=== PATIENT | female | born 1950 | race Two or more races ===

== ENCOUNTER → 2016-11-10 | Outpatient (CLI) | payer MEDICARE | END | disposition home or self-care (01) | LOC: LAB 09:10 | PROVIDERS: ATTEND Internal Medicine Cardiovascular Disease | DX: E03.9 Hypothyroidism, unspecified (principal) | CPT/HCPCS: 36415; 84436; 84443 ==

== ENCOUNTER → 2017-04-27 | Outpatient (CLI) | payer MEDICARE ==
[2017-04-27 12:13] LABS: Basophils # (auto) 0.1 uL; Basophils % (auto) 0.5 % (0.0-2.0); CONDITION Y; Eosinophils # (auto) 0.2 uL; Eosinophils % (auto) 1.9 % (0.0-7.0); Hematocrit 46.5 % (36.0-46.0); Hemoglobin 15.4 g/dL (12.2-16.2); Lymphocytes # (auto) 2.1 uL; Lymphocytes % (auto) 19.2 % (10.0-50.0); Mean Corpuscular Hemoglobin 29.4 pg (28.0-32.0); Mean Corpuscular Hgb Conc. 33.2 g/dL (32.0-36.0); Mean Corpuscular Volume 88.5 fL (80.0-100.0); Mean Platelet Volume 9.8 fL (7.4-10.4); Monocytes % (auto) 9.2 % (0.0-12.0); Neutrophils # (auto) 7.6 uL; Neutrophils % (auto) 69.2 % (37.0-80.0); Platelet Count (auto) 300 10^3/uL (140-450); Red Cell Distribution Width 14.9 % (11.6-16.0)
[2017-04-27 12:14] LABS: Urine Bilirubin Negative (Negative); Urine Blood Negative /uL (Negative); Urine Color Yellow (Yellow); Urine Glucose Normal (Normal); Urine Ketone Negative (Negative); Urine Nitrite Negative (Negative); Urine Urobilinogen Normal (Negative); Urine pH 5.5 (5.0-8.0)
[2017-04-27 12:47] LABS: Albumin 3.1 g/dL (3.4-5.0); Alkaline Phosphatase 109 U/L (45-117); Anion Gap 7 (5-15); Aspartate Aminotransferase 23 U/L (15-37); BUN/Creatinine Ratio 23.6; Bilirubin, Direct < 0.1 mg/dL (0-0.2); Bilirubin, Total 0.4 mg/dL (0.2-1.0); Blood Urea Nitrogen 17 mg/dL (7-18); Calcium 9.5 mg/dL (8.5-10.1); Carbon Dioxide 25 mmol/L (21-32); Chloride 109 mmol/L (98-107); Cholesterol 166 mg/dL (< 200); GFR African American 104 mL/min; GFR Non-African American 86 mL/min; Glucose 87 mg/dL (74-106); HDL Cholesterol 59 mg/dL (40-59); LDL Cholesterol 95 mg/dL (< 100); Potassium 4.1 mmol/L (3.5-5.1); Sodium 141 mmol/L (136-145); Total Protein 6.6 g/dL (6.4-8.2); Triglycerides 69 mg/dL (< 150)
== END | disposition home or self-care (01) ==
LOC: LAB 08:26
PROVIDERS: ATTEND Internal Medicine Cardiovascular Disease
DX: I10 Essential (primary) hypertension (principal); E78.00 Pure hypercholesterolemia, unspecified; K74.1 Hepatic sclerosis; E11.9 Type 2 diabetes mellitus without complications; E03.9 Hypothyroidism, unspecified; D64.9 Anemia, unspecified; E55.9 Vitamin D deficiency, unspecified; N39.0 Urinary tract infection, site not specified
CPT/HCPCS: 36415; 80048; 80061; 80076; 81003; 82306; 83036; 84443; 85025

== ENCOUNTER → 2018-05-26 | Outpatient (CLI) | payer MEDICARE ==
[2018-05-26 12:27] LABS: Urine Blood Negative /uL (Negative); Urine Specific Gravity 1.016 (1.001-1.035)
[2018-05-26 12:28] LABS: Basophils # (auto) 0.1 uL; Basophils % (auto) 0.9 % (0.0-2.0); Eosinophils # (auto) 0.1 uL; Eosinophils % (auto) 1.6 % (0.0-7.0); Hematocrit 40.9 % (36.0-46.0); Hemoglobin 13.8 g/dL (12.2-16.2); Lymphocytes # (auto) 1.7 uL; Lymphocytes % (auto) 18.7 % (10.0-50.0); Mean Corpuscular Hemoglobin 29.6 pg (28.0-32.0); Mean Corpuscular Hgb Conc. 33.7 g/dL (32.0-36.0); Mean Corpuscular Volume 87.8 fL (80.0-100.0); Monocytes # (auto) 0.8 uL; Monocytes % (auto) 9.5 % (0.0-12.0); Neutrophils # (auto) 6.2 uL; Neutrophils % (auto) 69.3 % (37.0-80.0); Nucleated Red Blood Cells % 0.1 %; Platelet Count (auto) 284 10^3/uL (140-450); Red Blood Cells 4.66 10^6/uL (4.0-5.20); Red Cell Distribution Width 13.4 % (11.8-14.3); White Blood Cell 8.9 10^3/uL (4.4-10.8)
[2018-05-26 12:50] LABS: Albumin 2.9 g/dL (3.4-5.0); Bilirubin, Total 0.3 mg/dL (0.2-1.0); Potassium 3.8 mmol/L (3.5-5.1)
[2018-05-26 13:29] LABS: Free T4 (Free Thyroxine) 1.02 ng/dL (0.89-1.76)
== END | disposition home or self-care (01) ==
LOC: Rad HDHVI 09:06
PROVIDERS: ATTEND Internal Medicine
DX: Z00.01 Encounter for general adult medical examination with abnormal findings (principal); M77.32 Calcaneal spur, left foot; M77.31 Calcaneal spur, right foot; M19.071 Primary osteoarthritis, right ankle and foot; E03.9 Hypothyroidism, unspecified; E11.9 Type 2 diabetes mellitus without complications; E55.9 Vitamin D deficiency, unspecified; D51.9 Vitamin B12 deficiency anemia, unspecified; N39.0 Urinary tract infection, site not specified; M19.90 Unspecified osteoarthritis, unspecified site; F41.9 Anxiety disorder, unspecified; R00.2 Palpitations; M79.671 Pain in right foot; M79.89 Other specified soft tissue disorders
CPT/HCPCS: 36415; 73630; 80053; 80061; 81003; 82306; 82607; 83036; 84439; 84443; 85025; 87086

== ENCOUNTER → 2018-07-06 | Outpatient (CLI) | payer MEDICARE ==
[~2018-07-06] MED LIST: FLUT250M2 INH; IOHEXOL 350 MG/ML 100ML IJ ONE; LEVO112T4 PO; LORA-655 PO; METR500T14 PO; TIOT17SP IN
[2018-07-06 09:45] VITALS: BP 150/71
[2018-07-06 10:15] VITALS: BP 145/70
== END | disposition home or self-care (01) ==
LOC: Rad HDHVI 09:25
PROVIDERS: ATTEND Internal Medicine
DX: R10.9 Unspecified abdominal pain (principal); R63.4 Abnormal weight loss
CPT/HCPCS: 71260; 74177; 82565; G0463; Q9967

== ENCOUNTER 2018-07-12 17:53 | Inpatient (IN) | payer MEDICARE ==
[~2018-07-12] VITALS: Ht 165.1 cm; Wt 61.7 kg
[2018-07-12] MEDS ORDERED: FLUT250M2 INH (18:40)
[2018-07-12] MEDS ORDERED: LEVO112T4 PO (18:40)
[2018-07-12] MEDS ORDERED: TIOT17SP IN (18:41)
[2018-07-12] MEDS ORDERED: METR500T14 PO (18:41)
[2018-07-12] MEDS ORDERED: LORA-655 PO (18:41)
[2018-07-12 21:08] VITALS: BP 133/71
[2018-07-12 21:16] LABS: Basophils # (auto) 0.1 uL; Eosinophils # (auto) 0.2 uL; Monocytes # (auto) 1.2 uL; White Blood Cell 11.1 10^3/uL (4.4-10.8)
[2018-07-12] MEDS: LEVOFLOXACIN 500MG 100 ML IV SCH (21:17)
[2018-07-12 21:18] LABS: Basophils % (auto) 0.9 % (0.0-2.0); Eosinophils % (auto) 2.1 % (0.0-7.0); Hematocrit 35.4 % (36.0-46.0); Hemoglobin 11.7 g/dL (12.2-16.2); Lymphocytes # (auto) 1.5 uL; Lymphocytes % (auto) 13.2 % (10.0-50.0); Mean Corpuscular Hgb Conc. 32.9 g/dL (32.0-36.0); Mean Corpuscular Volume 81.8 fL (80.0-100.0); Neutrophils # (auto) 8.1 uL; Neutrophils % (auto) 72.8 % (37.0-80.0); Platelet Count (auto) 379 10^3/uL (140-450); Red Blood Cells 4.33 10^6/uL (4.0-5.20); Red Cell Distribution Width 14.1 % (11.8-14.3)
[2018-07-12 21:31] LABS: INR 1.05 (0.9-1.15); Partial Thromboplastin Time 28.9 sec (23.78-33.04); Prothrombin Time 11.2 sec (9.27-12.13)
[2018-07-12 21:39] LABS: Albumin 2.4 g/dL (3.4-5.0); BUN/Creatinine Ratio 18.2; Bilirubin, Total 0.2 mg/dL (0.2-1.0); Calcium 8.7 mg/dL (8.5-10.1); Potassium 3.6 mmol/L (3.5-5.1); Total Protein 6.5 g/dL (6.4-8.2)
[2018-07-12] MEDS: metroNIDAZOLE 500MG/100ML 100 ML IV SCH (23:36)
[2018-07-12] MEDS: IPRATROPIUM BROM 0.5 MG/2.5ML INH SOL NEB SCH (23:46)
[2018-07-12] MEDS: ALBUTEROL SULF 2.5 MG/0.5ML(0.5%) NEB SOLN NEB SCH (23:47)
[2018-07-13 00:32] VITALS: BP 133/71
[2018-07-13 04:46] VITALS: BP 144/74
[2018-07-13] MEDS: metroNIDAZOLE 500MG/100ML 100 ML IV SCH ×4 (05:45→23:58)
[2018-07-13] MEDS: LEVOTHYROXINE SODIUM 112 MCG TAB PO SCH ×3 (05:47→06:22)
[2018-07-13] MEDS: ALBUTEROL SULF 2.5 MG/0.5ML(0.5%) NEB SOLN NEB SCH ×4 (06:04→23:37)
[2018-07-13] MEDS: IPRATROPIUM BROM 0.5 MG/2.5ML INH SOL NEB SCH ×4 (06:04→23:37)
[2018-07-13] MEDS: BUDESONIDE (INHALATION) 0.5 MG/2 ML NEB NEB SCH ×2 (06:08→18:19)
[2018-07-13 08:00] VITALS: BP 132/77
[2018-07-13] MEDS: NICOTINE 21MG/24 HR TOPICAL PATCH TD SCH (10:00)
[2018-07-13] MEDS ORDERED: PATIENTS OWN MEDICATION IN SCH (10:00)
[2018-07-13 12:00] VITALS: BP 136/75
[2018-07-13 16:51] VITALS: BP 149/80
[2018-07-13] MEDS: LORazepam 0.5 MG TAB PO PRN (19:58)
[2018-07-13 21:33] VITALS: BP 156/75
[2018-07-13] MEDS ORDERED: CLINIMIX PER PHARMACY 0 ML IV SCH (22:00)
[2018-07-13] MEDS: LEVOFLOXACIN 500MG 100 ML IV SCH (22:18)
[2018-07-13] MEDS: InsuLIN REG 1unit/0.01ml Soln (100units/ml) SC SCH (23:58)
[2018-07-13] MEDS: ACCU-CHEK COMFORT CURVE STRIP VI SCH (23:58)
[2018-07-14] MEDS ORDERED: DEXTROSE (50%) 50ML SYRG IV SCH
[2018-07-14] MEDS: CLINIMIX PER PHARMACY IV NR ×2 (00:14→21:54)
[2018-07-14 04:41] VITALS: BP 150/78
[2018-07-14] MEDS: metroNIDAZOLE 500MG/100ML 100 ML IV SCH ×4 (05:49→23:31)
[2018-07-14] MEDS: LEVOTHYROXINE SODIUM 112 MCG TAB PO SCH (05:49)
[2018-07-14] MEDS: ACCU-CHEK COMFORT CURVE STRIP VI SCH ×4 (05:50→23:41)
[2018-07-14] MEDS: InsuLIN REG 1unit/0.01ml Soln (100units/ml) SC SCH ×4 (05:50→23:41)
[2018-07-14] MEDS: ALBUTEROL SULF 2.5 MG/0.5ML(0.5%) NEB SOLN NEB SCH ×3 (06:41→18:25)
[2018-07-14] MEDS: IPRATROPIUM BROM 0.5 MG/2.5ML INH SOL NEB SCH ×3 (06:41→18:25)
[2018-07-14] MEDS: BUDESONIDE (INHALATION) 0.5 MG/2 ML NEB NEB SCH ×2 (06:41→18:25)
[2018-07-14 07:13] LABS: Albumin 2.4 g/dL (3.4-5.0); BUN/Creatinine Ratio 15.9; Bilirubin, Total 0.2 mg/dL (0.2-1.0); Calcium 8.5 mg/dL (8.5-10.1); Magnesium 2.5 mg/dL (1.6-2.6); Phosphorus 2.1 mg/dL (2.5-4.90); Potassium 4.1 mmol/L (3.5-5.1); Pre Albumin 13.5 mg/dL (20.0-40.0); Total Protein 6.5 g/dL (6.4-8.2)
[2018-07-14 08:37] VITALS: BP 133/90
[2018-07-14] MEDS: NICOTINE 21MG/24 HR TOPICAL PATCH TD SCH (10:00)
[2018-07-14] MEDS ORDERED: EZ-GAS II GRANULES (RADIOLOGY USE) PO ONE (10:32)
[2018-07-14] MEDS ORDERED: GASTROGRAFIN 120 ML SOL ONE (10:32)
[2018-07-14] MEDS ORDERED: POTASSIUM PHOSP 22MEQ(15MMOLE) in NS 100 ML IV ONE (12:00)
[2018-07-14 13:00] VITALS: BP 147/72
[2018-07-14 16:11] VITALS: BP 140/80
[2018-07-14] MEDS ORDERED: CLINIMIX PER PHARMACY IV NR ×9 (20:00)
[2018-07-14] MEDS: LORazepam 0.5 MG TAB PO PRN (20:09)
[2018-07-14] MEDS: LEVOFLOXACIN 500MG 100 ML IV SCH (21:38)
[2018-07-14 22:00] VITALS: BP 141/82
[2018-07-15] MEDS: IPRATROPIUM BROM 0.5 MG/2.5ML INH SOL NEB SCH ×4 (00:30→19:18)
[2018-07-15] MEDS: ALBUTEROL SULF 2.5 MG/0.5ML(0.5%) NEB SOLN NEB SCH ×4 (00:30→19:18)
[2018-07-15 04:59] VITALS: BP 143/95
[2018-07-15] MEDS: LEVOTHYROXINE SODIUM 112 MCG TAB PO SCH (05:28)
[2018-07-15] MEDS: metroNIDAZOLE 500MG/100ML 100 ML IV SCH ×4 (05:29→23:59)
[2018-07-15] MEDS: ACCU-CHEK COMFORT CURVE STRIP VI SCH ×3 (05:35→18:00)
[2018-07-15] MEDS: InsuLIN REG 1unit/0.01ml Soln (100units/ml) SC SCH ×3 (05:35→18:00)
[2018-07-15] MEDS: BUDESONIDE (INHALATION) 0.5 MG/2 ML NEB NEB SCH ×2 (06:03→19:18)
[2018-07-15 06:19] LABS: Basophils # (auto) 0.1 uL; Basophils % (auto) 0.5 % (0.0-2.0); Eosinophils # (auto) 0.1 uL; Eosinophils % (auto) 0.5 % (0.0-7.0); Hematocrit 38.2 % (36.0-46.0); Hemoglobin 12.5 g/dL (12.2-16.2); Lymphocytes # (auto) 1.1 uL; Mean Corpuscular Hgb Conc. 32.9 g/dL (32.0-36.0); Mean Corpuscular Volume 82.2 fL (80.0-100.0); Monocytes # (auto) 1.2 uL; Neutrophils # (auto) 8.7 uL; Nucleated Red Blood Cells % 0.1 %; Platelet Count (auto) 381 10^3/uL (140-450); Red Blood Cells 4.64 10^6/uL (4.0-5.20); Red Cell Distribution Width 14.4 % (11.8-14.3); White Blood Cell 11.2 10^3/uL (4.4-10.8)
[2018-07-15 06:53] LABS: Albumin 2.6 g/dL (3.4-5.0); BUN/Creatinine Ratio 26.2; Bilirubin, Total 0.3 mg/dL (0.2-1.0); Calcium 8.9 mg/dL (8.5-10.1); Magnesium 2.3 mg/dL (1.6-2.6); Phosphorus 2.3 mg/dL (2.5-4.90); Potassium 3.8 mmol/L (3.5-5.1); Total Protein 6.9 g/dL (6.4-8.2)
[2018-07-15 09:00] VITALS: BP 147/72
[2018-07-15] MEDS ORDERED: POTASSIUM PHOSP 22MEQ(15MMOLE) in NS 100 ML IV ONE (09:00)
[2018-07-15] MEDS: NICOTINE 21MG/24 HR TOPICAL PATCH TD SCH (10:00)
[2018-07-15] MEDS ORDERED: HYDROmorphone HCL 2 MG TAB PO ONE (12:00)
[2018-07-15 12:45] VITALS: BP 182/89
[2018-07-15 17:00] VITALS: BP 161/84
[2018-07-15] MEDS ORDERED: [UNRECOGNIZED DRUG - OTHER] IV NR ×5 (20:00)
[2018-07-15] MEDS ORDERED: MULTIPLE VITAMIN IV NR ×5 (20:00)
[2018-07-15] MEDS ORDERED: POTASSIUM PHOSPHATE IV NR ×5 (20:00)
[2018-07-15] MEDS ORDERED: POTASSIUM ACETATE IV NR ×5 (20:00)
[2018-07-15] MEDS: LORazepam 0.5 MG TAB PO PRN (20:19)
[2018-07-15] MEDS: LEVOFLOXACIN 500MG 100 ML IV SCH (21:55)
[2018-07-15 22:00] VITALS: BP 153/92
[2018-07-16] MEDS: ACCU-CHEK COMFORT CURVE STRIP VI SCH ×4 (00:05→17:47)
[2018-07-16] MEDS: IPRATROPIUM BROM 0.5 MG/2.5ML INH SOL NEB SCH ×4 (00:56→18:21)
[2018-07-16] MEDS: ALBUTEROL SULF 2.5 MG/0.5ML(0.5%) NEB SOLN NEB SCH ×4 (00:56→18:21)
[2018-07-16 01:29] VITALS: BP 153/92
[2018-07-16 05:00] VITALS: BP 134/74
[2018-07-16] MEDS: InsuLIN REG 1unit/0.01ml Soln (100units/ml) SC SCH ×4 (06:00→17:47)
[2018-07-16] MEDS: LEVOTHYROXINE SODIUM 112 MCG TAB PO SCH (06:14)
[2018-07-16] MEDS: metroNIDAZOLE 500MG/100ML 100 ML IV SCH ×3 (06:14→17:46)
[2018-07-16 06:40] LABS: Albumin 2.5 g/dL (3.4-5.0); Bilirubin, Total 0.4 mg/dL (0.2-1.0); Calcium 8.9 mg/dL (8.5-10.1); Magnesium 2.4 mg/dL (1.6-2.6); Phosphorus 2.5 mg/dL (2.5-4.90); Potassium 3.7 mmol/L (3.5-5.1); Total Protein 6.6 g/dL (6.4-8.2)
[2018-07-16] MEDS: BUDESONIDE (INHALATION) 0.5 MG/2 ML NEB NEB SCH ×2 (07:05→18:21)
[2018-07-16] MEDS ORDERED: IOHEXOL 300 MG/ML 100ML BOTTLE IJ ONE (08:06)
[2018-07-16 08:09] VITALS: BP 155/76
[2018-07-16] MEDS: NICOTINE 21MG/24 HR TOPICAL PATCH TD SCH (09:57)
[2018-07-16 12:14] VITALS: BP 141/78
[2018-07-16 16:45] VITALS: BP 140/85
[2018-07-16] MEDS ORDERED: CLINIMIX PER PHARMACY IV NR ×5 (20:00)
[2018-07-16] MEDS: LORazepam 0.5 MG TAB PO PRN (21:38)
[2018-07-16] MEDS: LEVOFLOXACIN 500MG 100 ML IV SCH (21:39)
[2018-07-16 22:00] VITALS: BP 143/79
[2018-07-17] MEDS: metroNIDAZOLE 500MG/100ML 100 ML IV SCH ×4 (00:50→17:30)
[2018-07-17] MEDS: ACCU-CHEK COMFORT CURVE STRIP VI SCH ×4 (00:51→17:30)
[2018-07-17] MEDS: InsuLIN REG 1unit/0.01ml Soln (100units/ml) SC SCH ×4 (00:51→17:30)
[2018-07-17 04:59] VITALS: BP 144/67
[2018-07-17] MEDS: LEVOTHYROXINE SODIUM 112 MCG TAB PO SCH (06:00)
[2018-07-17] MEDS: ALBUTEROL SULF 2.5 MG/0.5ML(0.5%) NEB SOLN NEB SCH ×4 (06:16→19:40)
[2018-07-17] MEDS: IPRATROPIUM BROM 0.5 MG/2.5ML INH SOL NEB SCH ×4 (06:17→19:40)
[2018-07-17] MEDS: BUDESONIDE (INHALATION) 0.5 MG/2 ML NEB NEB SCH (06:17)
[2018-07-17 07:55] LABS: BUN/Creatinine Ratio 14.5; Calcium 8.7 mg/dL (8.5-10.1); Potassium 3.8 mmol/L (3.5-5.1)
[2018-07-17 08:00] VITALS: BP 142/80
[2018-07-17 08:30] VITALS: BP_SYST 142; BP_SYST 147; BP_DIAS 80
[2018-07-17] MEDS: NICOTINE 21MG/24 HR TOPICAL PATCH TD SCH (09:30)
[2018-07-17 12:30] VITALS: BP 150/97
[2018-07-17 16:38] VITALS: BP 150/72
[2018-07-17] MEDS: LORazepam 0.5 MG TAB PO PRN (16:58)
[2018-07-17] MEDS: LEVOFLOXACIN 500MG 100 ML IV SCH (21:26)
[2018-07-17 21:36] VITALS: BP 137/88
[2018-07-18] MEDS: metroNIDAZOLE 500MG/100ML 100 ML IV SCH ×3 (00:06→11:57)
[2018-07-18] MEDS: ALBUTEROL SULF 2.5 MG/0.5ML(0.5%) NEB SOLN NEB SCH ×3 (00:47→11:59)
[2018-07-18] MEDS: IPRATROPIUM BROM 0.5 MG/2.5ML INH SOL NEB SCH ×3 (00:47→11:59)
[2018-07-18] MEDS: BUDESONIDE (INHALATION) 0.5 MG/2 ML NEB NEB SCH ×2 (00:48→10:00)
[2018-07-18 04:35] VITALS: BP 128/76
[2018-07-18] MEDS: InsuLIN REG 1unit/0.01ml Soln (100units/ml) SC SCH ×3 (06:00→11:57)
[2018-07-18] MEDS: ACCU-CHEK COMFORT CURVE STRIP VI SCH ×3 (06:00→11:57)
[2018-07-18] MEDS: LEVOTHYROXINE SODIUM 112 MCG TAB PO SCH (06:07)
[2018-07-18 09:00] VITALS: BP 144/80
[2018-07-18] MEDS: NICOTINE 21MG/24 HR TOPICAL PATCH TD SCH (10:00)
[2018-07-18 13:00] VITALS: BP 139/81
== END 2018-07-18 13:59 | disposition home or self-care (01) | DRG 391 ==
LOC: WEST WING 17:53
PROVIDERS: ADMIT Internal Medicine Cardiovascular Disease; ATTEND Internal Medicine Cardiovascular Disease
DX: K52.89 Other specified noninfective gastroenteritis and colitis (principal); E43 Unspecified severe protein-calorie malnutrition; R64 Cachexia; E27.8 Other specified disorders of adrenal gland; K59.09 Other constipation; Z68.22 Body mass index [BMI] 22.0-22.9, adult
CPT/HCPCS: 36415; 71045; 74177; 74245; 80048; 80053; 82040; 82962; 83735; 84100; 84478; 85025; 85610; 85730; 94640; A6257; J1956; J3490

== ENCOUNTER → 2018-08-04 | Outpatient (CLI) | payer MEDICARE ==
[~2018-08-04] MED LIST changes: +ALBUAER3 IN; -IOHEXOL 350 MG/ML 100ML IJ ONE
[2018-08-04 10:14] LABS: Basophils # (auto) 0.1 uL; Eosinophils # (auto) 0.2 uL; Eosinophils % (auto) 2.8 % (0.0-7.0); Hematocrit 42.3 % (36.0-46.0); Hemoglobin 13.9 g/dL (12.2-16.2); Lymphocytes # (auto) 1.5 uL; Lymphocytes % (auto) 19.7 % (10.0-50.0); Mean Corpuscular Hemoglobin 27.1 pg (28.0-32.0); Mean Corpuscular Hgb Conc. 32.8 g/dL (32.0-36.0); Mean Corpuscular Volume 82.4 fL (80.0-100.0); Monocytes # (auto) 0.7 uL; Monocytes % (auto) 9.7 % (0.0-12.0); Neutrophils % (auto) 66.8 % (37.0-80.0); Platelet Count (auto) 339 10^3/uL (140-450); Red Blood Cells 5.13 10^6/uL (4.0-5.20); Red Cell Distribution Width 17.1 % (11.8-14.3); White Blood Cell 7.5 10^3/uL (4.4-10.8)
[2018-08-04 10:21] LABS: Urine Bacteria FEW /hpf (None Seen); Urine Blood Negative /uL (Negative); Urine Mucus FEW (None Seen); Urine Specific Gravity 1.023 (1.001-1.035); Urine WBC 10 /hpf (0 - 5)
[2018-08-04 10:34] LABS: Albumin 3.2 g/dL (3.4-5.0); Calcium 9.5 mg/dL (8.5-10.1); Potassium 4.3 mmol/L (3.5-5.1)
[2018-08-04 10:36] LABS: BUN/Creatinine Ratio 19.4; Bilirubin, Total 0.4 mg/dL (0.2-1.0); Total Protein 7.5 g/dL (6.4-8.2)
[2018-08-04 10:49] LABS: INR 0.97 (0.9-1.15); Partial Thromboplastin Time 22.9 sec (23.78-33.04); Prothrombin Time 10.4 sec (9.27-12.13)
== END | disposition home or self-care (01) ==
LOC: LAB 09:01
PROVIDERS: ATTEND Internal Medicine Gastroenterology
DX: Z01.812 Encounter for preprocedural laboratory examination (principal); Z79.899 Other long term (current) drug therapy; R79.1 Abnormal coagulation profile
CPT/HCPCS: 36415; 80053; 81001; 85025; 85610; 85730

== ENCOUNTER 2018-08-09 09:27 | Day surgery (SDC) | payer MEDICARE, OTHER ==
[~2018-08-09] VITALS: Ht 167.6 cm; Wt 55.8 kg
[~2018-08-09 09:27] MED LIST changes: -METR500T14 PO
[2018-08-09] MEDS ORDERED: fentaNYL CITRATE 100 MCG/2 ML VL ONE (11:20)
[2018-08-09] MEDS ORDERED: MIDAZOLAM HCL 1MG/1ML-2 ML VIAL ONE (11:20)
[2018-08-09] MEDS ORDERED: PROPOFOL 10 MG/ML 20 ML IV ONE (11:23)
[2018-08-09] MEDS ORDERED: fentaNYL CITRATE 100 MCG/2 ML VL IV ONE (12:00)
[2018-08-09] MEDS ORDERED: hydrALAZINE HCL 20 MG/ML VL IV PRN (12:00)
[2018-08-09] MEDS ORDERED: ONDANSETRON HCL 4 MG/2 ML VIAL IV ONE (12:00)
[2018-08-09] MEDS ORDERED: ePHEDrine SULFATE 50 MG/ML AMP IV PRN (12:00)
[2018-08-09 12:15] VITALS: BP 126/80
== END 2018-08-09 12:20 | disposition home or self-care (01) ==
LOC: SUR 09:27
PROVIDERS: ATTEND Internal Medicine Gastroenterology
DX: K63.89 Other specified diseases of intestine (principal); F41.9 Anxiety disorder, unspecified; F17.210 Nicotine dependence, cigarettes, uncomplicated; J45.909 Unspecified asthma, uncomplicated; E89.0 Postprocedural hypothyroidism; Z90.710 Acquired absence of both cervix and uterus; Z90.49 Acquired absence of other specified parts of digestive tract; Z80.1 Family history of malignant neoplasm of trachea, bronchus and lung; Z80.3 Family history of malignant neoplasm of breast
CPT/HCPCS: 45378; J2250; J2704; J3010; J7030

== ENCOUNTER → 2023-07-31 | Outpatient (CLI) | payer MEDICARE, OTHER | END | disposition home or self-care (01) | LOC: Rad HDHVI 10:49 | PROVIDERS: ATTEND Internal Medicine Cardiovascular Disease | DX: I35.1 Nonrheumatic aortic (valve) insufficiency (principal); I10 Essential (primary) hypertension; R00.2 Palpitations | CPT/HCPCS: 93306 ==

== ENCOUNTER → 2023-08-19 | Outpatient (CLI) | payer MEDICARE, OTHER ==
[~2023-08-19] VITALS: Ht 165.1 cm; Wt 60.8 kg
[~2023-08-19] MED LIST changes: +ADENOSINE 51 MG in GIVE UN-DILUTED 0 ML IV ONE; +ADENOSINE 90 MG/30 ML INJ IV ONE
== END | disposition home or self-care (01) ==
LOC: Rad HDHVI 08:22
PROVIDERS: ATTEND Internal Medicine Cardiovascular Disease
DX: I11.0 Hypertensive heart disease with heart failure (principal); I50.32 Chronic diastolic (congestive) heart failure; R00.2 Palpitations; R06.02 Shortness of breath; R07.9 Chest pain, unspecified; J44.9 Chronic obstructive pulmonary disease, unspecified; F17.210 Nicotine dependence, cigarettes, uncomplicated; Z82.49 Family history of ischemic heart disease and other diseases of the circulatory system
CPT/HCPCS: 78452; 93005; 96374; 96375; A9500; J0153

== ENCOUNTER → 2023-08-26 | Outpatient (CLI) | payer MEDICARE, OTHER ==
[~2023-08-26] MED LIST changes: -ADENOSINE 51 MG in GIVE UN-DILUTED 0 ML IV ONE; -ADENOSINE 90 MG/30 ML INJ IV ONE
== END | disposition home or self-care (01) ==
LOC: Rad HDHVI 08:02
PROVIDERS: ATTEND Internal Medicine Cardiovascular Disease
DX: I70.203 Unspecified atherosclerosis of native arteries of extremities, bilateral legs (principal); I65.23 Occlusion and stenosis of bilateral carotid arteries; R07.9 Chest pain, unspecified
CPT/HCPCS: 93880; 93925

== ENCOUNTER 2023-11-10 13:59 | Inpatient (IN) | payer MEDICARE, OTHER ==
[~2023-11-10] VITALS: Ht 165.1 cm; Wt 60.0 kg
[2023-11-10] MEDS ORDERED: dilTIAZem 25 MG/5 ML VIAL IV ONE (14:15)
[2023-11-10] MEDS ORDERED: SODIUM CHLORIDE 0.9% 500 ML IV ONE (14:15)
[2023-11-10] MEDS ORDERED: NITROGLYCERIN 0.4 MG SL TAB SL ONE (14:15)
[2023-11-10 14:31] LABS: Basophils # (auto) 0.1 10 ^3/uL (0-0.2); Basophils % (auto) 0.7 % (0.0-2.0); Eosinophils # (auto) 0.1 10 ^3/uL (0-0.8); Eosinophils % (auto) 1.4 % (0.0-7.0); Hematocrit 44.7 % (36.0-46.0); Lymphocytes # (auto) 1.9 10 ^3/uL (0.4-5.4); Lymphocytes % (auto) 18.9 % (10.0-50.0); Mean Corpuscular Hemoglobin 31.5 pg (28.0-32.0); Mean Corpuscular Hgb Conc. 33.5 g/dL (32.0-36.0); Mean Corpuscular Volume 93.9 fL (80.0-100.0); Monocytes % (auto) 10.5 % (0.0-12.0); Neutrophils # (auto) 6.7 10 ^3/uL (1.6-8.6); Neutrophils % (auto) 68.5 % (37.0-80.0); Nucleated Red Blood Cells % 0.1 %; Red Blood Cells 4.77 10^6/uL (4.0-5.20); Red Cell Distribution Width 14.1 % (11.8-14.3); White Blood Cell 9.9 10^3/uL (4.4-10.8)
[2023-11-10] MEDS ORDERED: dilTIAZem 125mg/125ml BAG KIT 125 ML IV ONE (15:00)
[2023-11-10 15:21] LABS: Alanine Aminotransferase 24 U/L (7-40); Albumin 4.1 g/dL (3.2-4.8); Alkaline Phosphatase 94 U/L (46-116); Anion Gap 6 (5-15); Aspartate Aminotransferase 31 U/L (13-40); BUN/Creatinine Ratio 25.6 (10.0-20.0); Bilirubin, Total 0.3 mg/dL (0.2-1.0); Blood Urea Nitrogen 20 mg/dL (9-23); Calcium 9.4 mg/dL (8.7-10.4); Carbon Dioxide 25 mmol/L (20-30); Chloride 114 mmol/L (98-107); Glucose 132 mg/dL (74-106); Magnesium 1.6 mg/dL (1.6-2.6); Potassium 4.2 mmol/L (3.5-5.1); Sodium 145 mmol/L (136-145); Total Protein 6.4 g/dL (5.7-8.2)
[2023-11-10] MEDS ORDERED: MORPHINE SULFATE INJ 2 MG/ml SYRG IV PRN (16:15)
[2023-11-10] MEDS ORDERED: NITROGLYCERIN 0.4 MG SL TAB SL PRN (16:15)
[2023-11-10 16:53] LABS: Triglycerides 177 mg/dL (< 150)
[2023-11-10 16:54] LABS: LDL Cholesterol 78 mg/dL (< 100)
[2023-11-10 16:55] LABS: Cholesterol 152 mg/dL (< 200); HDL Cholesterol 56 mg/dL (40-59)
[2023-11-10] MEDS ORDERED: ASPirin 81 mg TAB PO ONE (18:00)
[2023-11-10] MEDS: ENOXAPARIN SOD 60 MG/0.6 ML SYRINGE SC SCH (18:11)
[2023-11-10 20:44] VITALS: PULSE 64
[2023-11-10] MEDS ORDERED: ATORVASTATIN 20 MG TAB PO SCH (22:00)
[2023-11-11] MEDS: ENOXAPARIN SOD 60 MG/0.6 ML SYRINGE SC SCH (06:32)
[2023-11-11] MEDS ORDERED: LEVOTHYROXINE SODIUM 112 MCG TAB PO SCH (07:00)
[2023-11-11 07:30] VITALS: PULSE 63; RESP 14; O2SAT 99
[2023-11-11 07:46] LABS: Urine Epithelial Cast None Seen /hpf (<5)
[2023-11-11 07:51] LABS: Urine Bacteria NONE SEEN /hpf (None Seen); Urine Blood Negative /uL (Negative); Urine Clarity Clear (Clear); Urine Color Colorless (Yellow); Urine Hyaline Cast FEW /lpf (0 - 2); Urine Protein, UAD Negative (Negative); Urine Specific Gravity 1.011 (1.001-1.035); Urine Urobilinogen Normal (Negative); Urine WBC <1 /hpf (0 - 5); Urine pH 5.5 (5.0-8.0)
[2023-11-11 08:35] LABS: Amphetamine Screen, Urine Neg (NEGATIVE); Barbiturate Scree,Urine Neg (NEGATIVE); Benzodiazephine Screen, Urine Neg (NEGATIVE); Cocaine Screen, Urine Neg (NEGATIVE)
[2023-11-11 08:36] LABS: Cannabinoid Screen, Urine Neg (NEGATIVE); Opiate Scree,Urine Neg (NEGATIVE); Phencyclidine Screen, Urine Neg (NEGATIVE)
[2023-11-11 08:55] LABS: Basophils # (auto) 0.1 10 ^3/uL (0-0.2); Basophils % (auto) 0.6 % (0.0-2.0); Eosinophils # (auto) 0.2 10 ^3/uL (0-0.8); Hemoglobin 14.3 g/dL (12.2-16.2); Lymphocytes % (auto) 22.3 % (10.0-50.0); Mean Corpuscular Hemoglobin 31.9 pg (28.0-32.0); Mean Corpuscular Volume 93.6 fL (80.0-100.0); Monocytes % (auto) 10.6 % (0.0-12.0); Neutrophils # (auto) 5.9 10 ^3/uL (1.6-8.6); Neutrophils % (auto) 64.5 % (37.0-80.0); Red Blood Cells 4.49 10^6/uL (4.0-5.20); Red Cell Distribution Width 14.5 % (11.8-14.3); White Blood Cell 9.2 10^3/uL (4.4-10.8)
[2023-11-11 09:00] VITALS: TEMP 98.2
[2023-11-11 09:23] LABS: Alanine Aminotransferase 21 U/L (7-40); Alkaline Phosphatase 82 U/L (46-116); Anion Gap 3 (5-15); Aspartate Aminotransferase 23 U/L (13-40); BUN/Creatinine Ratio 26.9 (10.0-20.0); Bilirubin, Total 0.6 mg/dL (0.2-1.0); Blood Urea Nitrogen 21 mg/dL (9-23); Calcium 9.5 mg/dL (8.7-10.4); Carbon Dioxide 29 mmol/L (20-30); Chloride 112 mmol/L (98-107); Glucose 85 mg/dL (74-106); Magnesium 1.7 mg/dL (1.6-2.6); Potassium 4.3 mmol/L (3.5-5.1); Sodium 144 mmol/L (136-145)
[2023-11-11 09:24] LABS: Total Protein 6.3 g/dL (5.7-8.2)
[2023-11-11 09:26] LABS: INR 0.99 (0.9-1.15); Prothrombin Time 10.4 sec (9.3-11.8)
[2023-11-11] MEDS ORDERED: LISINOPRIL 5 MG TAB PO SCH (10:00)
[2023-11-11] MEDS ORDERED: ASPirin 81 mg TAB PO SCH (10:00)
[2023-11-11] MEDS ORDERED: CARVEDILOL 3.125 MG TAB PO SCH (10:00)
[2023-11-11] MEDS ORDERED: ERGOCALCIFEROL 50,000 UNIT(1.25MG) CAP PO SCH (11:30)
[2023-11-11 12:00] VITALS: BP 129/71; PULSE 63; RESP 14; O2SAT 94
== END 2023-11-11 14:37 | disposition left against medical advice (07) | DRG 281 ==
LOC: EDBD 13:59 → ER 13:59 → TELE 16:08
PROVIDERS: ADMIT Internal Medicine; ATTEND Internal Medicine Cardiovascular Disease
DX: I48.20 Chronic atrial fibrillation, unspecified (principal); I21.A1 Myocardial infarction type 2; D68.59 Other primary thrombophilia; I25.10 Atherosclerotic heart disease of native coronary artery without angina pectoris; E03.9 Hypothyroidism, unspecified; E78.5 Hyperlipidemia, unspecified; I10 Essential (primary) hypertension; R07.89 Other chest pain
CPT/HCPCS: 36415; 71045; 80053; 80061; 80307; 81001; 82306; 82607; 83036; 83605; 83735; 83880; 84443; 84484; 85025; 85610; 85730; 93005; 99291; G0378

== ENCOUNTER → 2023-11-25 | Outpatient (CLI) | payer MEDICARE, OTHER | END | disposition home or self-care (01) | LOC: Rad HDHVI 13:45 | PROVIDERS: ATTEND Internal Medicine Cardiovascular Disease | DX: I08.3 Combined rheumatic disorders of mitral, aortic and tricuspid valves (principal); I10 Essential (primary) hypertension; R07.9 Chest pain, unspecified | CPT/HCPCS: 93306 ==

== ENCOUNTER → 2024-05-18 | Outpatient (CLI) | payer MEDICARE, OTHER ==
[2024-05-18 10:20] VITALS: BP 154/67; PULSE 57; RESP 16; O2SAT 97
[2024-05-18] MEDS: VANCOMYCIN 1GM/200ML 200 ML IV ONE ×2 (10:20→10:51)
[2024-05-18] MEDS: cefTRIAXone 1GM/50ML D5W 50 ML IV ONE ×2 (10:20→10:51)
[2024-05-18 12:20] VITALS: BP 154/67; PULSE 57; RESP 16; O2SAT 97
== END | disposition home or self-care (01) ==
LOC: Rad HDHVI 10:16
PROVIDERS: ATTEND Internal Medicine Cardiovascular Disease
DX: M79.671 Pain in right foot (principal); S91.301A Unspecified open wound, right foot, initial encounter; X58.XXXA Exposure to other specified factors, initial encounter; Y93.89 Activity, other specified; Y92.89 Other specified places as the place of occurrence of the external cause; Y99.8 Other external cause status
CPT/HCPCS: 73630; 96365; 96367; G0463; J0696; J3370; 96368

== ENCOUNTER → 2024-06-01 | Outpatient (CLI) | payer MEDICARE, OTHER ==
[2024-06-01 09:50] VITALS: BP 120/64; PULSE 59; RESP 18; O2SAT 98
[2024-06-01 10:20] VITALS: BP 126/61; PULSE 50; RESP 18; O2SAT 98
== END | disposition home or self-care (01) ==
LOC: CHF HDHVI 09:51
PROVIDERS: ATTEND Internal Medicine Cardiovascular Disease
DX: S91.301D Unspecified open wound, right foot, subsequent encounter (principal); X58.XXXD Exposure to other specified factors, subsequent encounter
CPT/HCPCS: G0463

== ENCOUNTER → 2024-08-03 | Outpatient (CLI) | payer MEDICARE, OTHER ==
[~2024-08-03] MED LIST changes: +DexAMETHasone SOD PHOS 10MG/1ML VIAL INJ ONE; +MIDAZOLAM HCL 2MG/2ML 2ml VIAL (1mg/ml) ONE; +PROPOFOL 10 MG/ML 20 ML IV ONE; +fentaNYL CITRATE 100 MCG/2 ML VL ONE
[2024-08-03 10:30] VITALS: BP 143/64; PULSE 54; RESP 18; O2SAT 96
[2024-08-03 10:38] VITALS: BP 146/65; PULSE 53; RESP 18; O2SAT 97
== END | disposition home or self-care (01) ==
LOC: CHF HDHVI 10:30
PROVIDERS: ATTEND Internal Medicine Cardiovascular Disease
DX: S90.921D Unspecified superficial injury of right foot, subsequent encounter (principal); I50.9 Heart failure, unspecified; X58.XXXD Exposure to other specified factors, subsequent encounter
CPT/HCPCS: G0463

== ENCOUNTER → 2024-12-02 | Outpatient (CLI) | payer MEDICARE, OTHER ==
[~2024-12-02] MED LIST changes: -DexAMETHasone SOD PHOS 10MG/1ML VIAL INJ ONE; -MIDAZOLAM HCL 2MG/2ML 2ml VIAL (1mg/ml) ONE; -PROPOFOL 10 MG/ML 20 ML IV ONE; -fentaNYL CITRATE 100 MCG/2 ML VL ONE
== END | disposition home or self-care (01) ==
LOC: Rad HDHVI 14:39
PROVIDERS: ATTEND Internal Medicine Cardiovascular Disease
DX: I10 Essential (primary) hypertension (principal)
CPT/HCPCS: 93306

== ENCOUNTER → 2024-12-05 | Outpatient (CLI) | payer MEDICARE, OTHER | END | disposition home or self-care (01) | LOC: Rad HDHVI 13:39 | PROVIDERS: ATTEND Internal Medicine Cardiovascular Disease | DX: I11.0 Hypertensive heart disease with heart failure (principal); I50.33 Acute on chronic diastolic (congestive) heart failure | CPT/HCPCS: 93880 ==

== ENCOUNTER 2024-12-22 06:50 | Inpatient (IN) | payer MEDICARE, OTHER ==
[2024-12-20 12:40] LABS: Basophils # (auto) 0.1 10 ^3/uL (0-0.2); Basophils % (auto) 0.7 % (0.0-2.0); Eosinophils # (auto) 0.2 10 ^3/uL (0-0.8); Eosinophils % (auto) 1.8 % (0.0-7.0); Hematocrit 41.3 % (36.0-46.0); Hemoglobin 13.9 g/dL (12.2-16.2); Lymphocytes # (auto) 2.3 10 ^3/uL (0.4-5.4); Lymphocytes % (auto) 27.2 % (10.0-50.0); Mean Corpuscular Hemoglobin 31.5 pg (28.0-32.0); Mean Corpuscular Hgb Conc. 33.6 g/dL (32.0-36.0); Mean Corpuscular Volume 93.9 fL (80.0-100.0); Monocytes # (auto) 0.8 10 ^3/uL (0-1.3); Monocytes % (auto) 9.4 % (0.0-12.0); Neutrophils # (auto) 5.2 10 ^3/uL (1.6-8.6); Neutrophils % (auto) 60.9 % (37.0-80.0); Nucleated Red Blood Cells % 0.1 %; Platelet Count (auto) 189 10^3/uL (140-450); Red Cell Distribution Width 13.4 % (11.8-14.3); White Blood Cell 8.5 10^3/uL (4.4-10.8)
[2024-12-20 13:01] LABS: Anion Gap 6 (5-15); Carbon Dioxide 28 mmol/L (20-31); Potassium 4.8 mmol/L (3.5-5.1); Sodium 142 mmol/L (136-145)
[2024-12-20 13:03] LABS: Calcium 10.3 mg/dL (8.7-10.4)
[2024-12-20 13:07] LABS: Blood Urea Nitrogen 20 mg/dL (9-23); Glucose 90 mg/dL (74-106)
[2024-12-20 13:10] LABS: INR 0.97 (0.9-1.15); Partial Thromboplastin Time 24.1 SEC (24.5-34.5); Prothrombin Time 10.3 sec (9.3-11.8)
[2024-12-20 13:11] LABS: Chloride 108 mmol/L (98-107)
[~2024-12-22] VITALS: Ht 165.1 cm; Wt 62.1 kg
[2024-12-22] VITALS (7 sets, daily range): BP systolic 117–158; BP diastolic 51–68; PULSE 60–64; RESP 10–17; O2SAT 96–98
[~2024-12-22 06:50] MED LIST changes: +AMIO200T33 PO; +FAMO20TA10 PO; +LEVO100T8 PO; -LEVO112T4 PO; +LORA-1121 PO; -LORA-655 PO; +METO25TA5 PO; +POM; +RIVA10TA PO; +SPIR25TA8 PO
[2024-12-22] MEDS: VANCOMYCIN HCL 1000 MG VL ONE (08:57)
[2024-12-22] MEDS: fentaNYL CITRATE 100 MCG/2 ML VL ONE (08:57)
[2024-12-22] MEDS: VANCOMYCIN 1GM/250ML KIT 250 ML IV ONE (08:58)
[2024-12-22] MEDS: LIDOCAINE 2%HCL (LOCAL ANESTH.) INJ 20ML MDV ONE ×2 (08:58→09:46)
[2024-12-22] MEDS: MIDAZOLAM HCL 2MG/2ML 2ml VIAL (1mg/ml) ONE (08:58)
[2024-12-22] MEDS ORDERED: HYDROcodone-ACET 10/325MG TAB PO PRN (10:30)
[2024-12-22] MEDS ORDERED: ALBUTEROL SULF HFA 90MCG INH 200DOSE IN SCH (10:30)
[2024-12-22] MEDS ORDERED: MORPHINE SULFATE INJ 2 MG/ml SYRG IV PRN (10:30)
[2024-12-22] MEDS ORDERED: NITROGLYCERIN 0.4 MG SL TAB SL PRN (10:30)
--- NOTE | 2024-12-22 10:33 | DVHDS ---
DATE OF DISCHARGE: 12/22/2024 DISCHARGE DIAGNOSES: Sick sinus syndrome, atrioventricular block. Status post dual chamber permanent pacemaker implantation, Biotronik MRI compatible system. The patient stable at the time of discharge. DISPOSITION: Home. ACTIVITY: As instructed. DIET: Will be 2 gram sodium diet. Follow up with me in 1 week. Chest x-ray shows no acute changes. No pneumothorax or hemothorax noted. I will follow up. The patient will be given antibiotics for a week as well. Keflex 500 mg q.i.d. for 7 days. If she develops any chest pain, shortness of breath, PND, orthopnea, palpitation, fever or chills, she is to contact me or come to the Emergency Room. Rj Tolliver MD SA/GERALDO TID: [id number] RECEIPT: [id number]
--- NOTE | 2024-12-22 10:45 | DVHOP ---
DATE OF SURGERY: 12/22/2024 PROCEDURES PERFORMED: * Dual-chamber permanent pacemaker. * Venography. * Conscious sedation. DESCRIPTION OF PROCEDURE: The patient was prepped and draped under sterile condition. A 1% Xylocaine was used to anesthetize the left subclavicular region. Using a Cook needle, the left subclavian vein was engaged via the Seldinger technique and using a Seldinger technique guidewire was then appropriately positioned. Using a #10 blade, linear incision was made using blunt dissection, electrocautery, pocket was then dissected out. Using a 9-Canadian sheath, the right ventricular active fixation lead then appropriately positioned. Threshold parameters obtained, lead was secured to the chest wall using 2-0 Ethibond. Similarly, using a 7-Canadian peel-away sheath, right atrial lead was then appropriately positioned. Threshold parameters obtained, lead was secured to the chest wall using 0 Ethibond. Generator was implanted. Pocket was irrigated using vancomycin saline solution. Pocket was closed using 3-0 Monoderm subcutaneous sutures followed by 3-0 Monoderm subcuticular sutures. There were no complications. The patient tolerated the procedure well. RESULTS: The patient had Biotronik MRI compatible dual-chamber permanent pacemaker, Edora 8 DR-T, model #473994, serial #[id number]. Ventricular lead is Solia S53, model #016552, serial #[id number]. Atrial lead is Solia S45, model #540926, serial #[id number]. Threshold parameters, atrium, P-wave amplitude of 5.1 millivolts, threshold of 0.9 volts at 0.4 milliseconds pulse duration, pacing impedance of 465 ohms. Right ventricular lead, R-wave amplitude of 15.8 millivolts, threshold of 0.8 volts at 0.4 milliseconds pulse duration, pacing impedance of 875 ohms. CONCLUSION: The patient has successful implantation of dual chamber permanent pacemaker, MRI compatible, Biotronik device. Rj Tolliver MD SA/MEY/SHANA TID: [id number] RECEIPT: [id number]
--- NOTE | 2024-12-22 10:56 | DVH ---
XY CHEST PORTABLE, HISTORY: S/P PACEMAKER COMPARISON: XY CHEST PORTABLE on DOS: 11/10/23 XY CHEST PORTABLE on DOS: 11/10/23 TECHNICAL DATA: 1 view of the chest was obtained. FINDINGS: Lines and tubes: A cardiac pacer is seen. Cardiomediastinal silhouette: normal Pulmonary vasculature: normal Lung expansion: normal Lung airspace: normal Lung interstitium: normal Pleura: normal Pneumothorax: no Bones: Unremarkable Other: no IMPRESSION: No acute intrathoracic abnormality.
[2024-12-22] MEDS: ACETAMINOPHEN 325 MG TAB PO PRN (11:43)
[2024-12-22] MEDS ORDERED: ceFAZolin 1GM/50ML 50 ML IV SCH (14:00)
--- NOTE | 2024-12-22 14:43 | ECG ---
[facility] Test Date: 2024-12-22 Test Time: 10:37:20 Pat Name: GIRISH JUAREZ Department: Room: [address] [place] [address] Gender: F [employer]: SADE : 1950 Requested By: OCTAVIA CHAO Order Number: [id number] Reading MD: Roberto Briceño Measurements Intervals Darby Rate: 60 P: 2 ID: [id number] QRS: 20 QRSD: 94 T: 33 QT: 462 QTc: 462 Interpretive Statements Electronic atrial pacemaker Electronically Signed On 12-23-2024 13:38:14 PST by Roberto Briceño Please click the below link to view image of tracing.
[2024-12-22] MEDS ORDERED: LORazepam 0.5 MG TAB PO SCH (22:00)
[2024-12-22] MEDS ORDERED: METOPROLOL TARTRATE 25 MG TAB PO SCH (22:00)
[2024-12-23] MEDS ORDERED: LEVOTHYROXINE SODIUM 100 MCG TAB PO SCH (07:00)
[2024-12-23] MEDS ORDERED: AMIODARONE HCL 200 MG TAB PO SCH (10:00)
[2024-12-23] MEDS ORDERED: SPIRONOLACTONE 25 MG TAB PO SCH (10:00)
[2024-12-23] MEDS ORDERED: FAMOTIDINE 20 MG TAB PO SCH (10:00)
== END 2024-12-22 13:10 | disposition home or self-care (01) | DRG 244 ==
LOC: CATH 06:50 → OVERFLOW 10:26
PROVIDERS: ADMIT Internal Medicine Cardiovascular Disease; ATTEND Internal Medicine Cardiovascular Disease
PROC: 0JH606Z Insertion of Pacemaker, Dual Chamber into Chest Subcutaneous Tissue and Fascia, Open Approach (ICD-10-PCS; principal; 2024-12-22)
PROC: 02H63JZ Insertion of Pacemaker Lead into Right Atrium, Percutaneous Approach (ICD-10-PCS; 2024-12-22)
PROC: 02HK3JZ Insertion of Pacemaker Lead into Right Ventricle, Percutaneous Approach (ICD-10-PCS; 2024-12-22)
DX: I49.5 Sick sinus syndrome (principal); I44.30 Unspecified atrioventricular block; Z79.899 Other long term (current) drug therapy
CPT/HCPCS: 33208; 36415; 71045; 71046; 80048; 85025; 85610; 85730; 93005; 99152; G0378; G0463; J2250

== ENCOUNTER → 2024-12-23 | Outpatient (CLI) | payer MEDICARE, OTHER ==
--- NOTE | 2024-12-23 14:23 | DVH ---
XY CHEST TWO VIEWS ROUTINE CLINICAL HISTORY: POST OP SOB COMPARISON: XY CHEST TWO VIEWS ROUTINE on DOS: 12/20/24 TECHNIQUE: Frontal and lateral view of the chest was obtained FINDINGS: Lines and Tubes: Left sided pacemaker Lungs: No focal consolidation. Pleura: No effusion. No pneumothorax. Cardiomediastinal contours: Unremarkable Bones: No acute osseous abnormality. IMPRESSION: No acute cardiopulmonary disease.
== END | disposition home or self-care (01) ==
LOC: Rad HDHVI 13:43
PROVIDERS: ATTEND Internal Medicine Cardiovascular Disease
DX: Z01.818 Encounter for other preprocedural examination (principal); R06.02 Shortness of breath
CPT/HCPCS: 71046

== ENCOUNTER 2025-03-17 09:34 | Outpatient (CLI) | payer MEDICARE, OTHER | END 2025-03-17 17:00 | disposition home or self-care (01) | LOC: Rad HDHVI 09:34 | PROVIDERS: ATTEND Internal Medicine Cardiovascular Disease | DX: I08.1 Rheumatic disorders of both mitral and tricuspid valves (principal) | CPT/HCPCS: 93306 ==

== ENCOUNTER 2025-04-05 15:47 | Outpatient (CLI) | payer MEDICARE, OTHER | END 2025-04-05 17:00 | disposition home or self-care (01) | LOC: Rad HDHVI 15:47 | PROVIDERS: ATTEND Internal Medicine Cardiovascular Disease | DX: I70.291 Other atherosclerosis of native arteries of extremities, right leg (principal); I11.0 Hypertensive heart disease with heart failure; I50.33 Acute on chronic diastolic (congestive) heart failure | CPT/HCPCS: 93880 ==

== ENCOUNTER 2025-07-19 15:33 | Outpatient (CLI) | payer MEDICARE, OTHER ==
[2025-07-19 15:25] VITALS: BP 144/98; PULSE 91; RESP 18; O2SAT 94
[2025-07-19] MEDS: KETOROLAC TROMETH 60MG/2ML VIAL ONE (16:00)
[2025-07-19] MEDS: KETOROLAC TROMETH 60MG/2ML VIAL IM ONE (16:08)
== END 2025-07-20 17:00 | disposition home or self-care (01) ==
LOC: CHF HDHVI 15:33
PROVIDERS: ATTEND Internal Medicine Cardiovascular Disease
DX: S51.811A Laceration without foreign body of right forearm, initial encounter (principal); I11.0 Hypertensive heart disease with heart failure; I50.33 Acute on chronic diastolic (congestive) heart failure; J44.9 Chronic obstructive pulmonary disease, unspecified; I25.10 Atherosclerotic heart disease of native coronary artery without angina pectoris; I48.20 Chronic atrial fibrillation, unspecified; M19.90 Unspecified osteoarthritis, unspecified site; E11.9 Type 2 diabetes mellitus without complications; F41.9 Anxiety disorder, unspecified; E78.5 Hyperlipidemia, unspecified; E03.9 Hypothyroidism, unspecified; Z90.710 Acquired absence of both cervix and uterus; Z90.49 Acquired absence of other specified parts of digestive tract; Z79.899 Other long term (current) drug therapy
CPT/HCPCS: 96372; G0463; J1885

== ENCOUNTER 2025-09-06 11:07 | Outpatient (CLI) | payer MEDICARE, OTHER ==
[2025-09-06 11:07] VITALS: BP 147/74; PULSE 78; RESP 17; O2SAT 98
== END 2025-09-06 17:00 | disposition home or self-care (01) ==
LOC: CHF HDHVI 11:07
PROVIDERS: ATTEND Internal Medicine Cardiovascular Disease
DX: S41.112A Laceration without foreign body of left upper arm, initial encounter (principal); X58.XXXA Exposure to other specified factors, initial encounter; Y93.89 Activity, other specified; Y92.89 Other specified places as the place of occurrence of the external cause; Y99.8 Other external cause status
CPT/HCPCS: G0463